=== PATIENT | male | born 1965 | race Hispanic/Latino ===

== ENCOUNTER 2017-09-02 00:45 | Inpatient (IN) | payer BC, MEDICARE ==
[2017-09-02] MEDS ORDERED: Octreotide Acetate 50 MCG/ML AMP ONE ×2 (01:01→01:11)
[2017-09-02] MEDS ORDERED: Pantoprazole 40 MG VIAL ONE ×2 (01:01→01:12)
[2017-09-02] MEDS ORDERED: Ondansetron ODT 4 MG TAB ONE (01:10)
[2017-09-02] MEDS ORDERED: Octreotide Acetate 1,250 MCG in Sodium Chloride 0.9% 250 ML 250 ML IVPB SCH (01:15)
[2017-09-02 01:18] LABS: INR-International Normal Ratio 1.7; PTT 32.3 SEC (22.9-36.1); Prothrombin Time 20.4 SEC (12.0-14.7)
[2017-09-02 01:32] LABS: Hemoglobin 5.8 g/dL (14.0-18.0)
[2017-09-02] MEDS ORDERED: EPINEPHrine 1 MG/10 ML Abboject SYRINGE ONE (01:32)
[2017-09-02 01:57] LABS: ALT (SGPT) 29 U/L (8-55); AST (SGOT) 45 U/L (5-34); Alkaline Phosphatase 73 U/L (40-150); Anion Gap 12 mmol/L (10-20); BUN (Urea Nitrogen) 32 mg/dL (8.4-25.7); Bilirubin, Total 0.9 mg/dL (0.2-1.2); Calc. Creatinine Clearance 0 mL/min (70-130); Calcium 7.8 mg/dL (7.8-10.44); Carbon Dioxide 21 mmol/L (22-29); Chloride 108 mmol/L (98-107); Estimated GFR-MDRD 70; Globulin 2.7 g/dL (2.4-3.5); Glucose 123 mg/dL (70-105); Potassium 4.1 mmol/L (3.5-5.1); Protein, Total 4.7 g/dL (6.0-8.3); Sodium 137 mmol/L (136-145)
[2017-09-02] MEDS ORDERED: Ondansetron HCl/PF 4 MG/2 ML Vial IVP PRN ×2 (02:26→03:08)
[2017-09-02 02:27] LABS: #Basophils 0.1 thou/uL (0.0-0.2); #Eosinphils 0.3 thou/uL (0.0-0.7); #Lymphocytes 2.5 thou/uL (1.20-3.40); #Monocytes 1.3 thou/uL (0.11-0.59); #Neutrophils 6.9 thou/uL (1.40-6.50); %Basophils 1.1 % (0.0-1.0); %Eosinophils 2.6 % (0.0-10.0); %Lymphocytes 22.6 % (21.0-51.0); %Monocytes 11.8 % (0.0-10.0); %Neutrophils 61.9 % (42.0-75.0); Anisocytosis SLIGHT = 6-15 cells (100X) (0-5/hpf); MDiff Complete? YES; Mean Corpuscular Hemoglobin 24.4 pg (27.0-31.0); Mean Corpuscular Volume 81.3 fl (80.0-94.0); Mean Platelet Volume 9.7 fL (7.4-10.4); PLT Morphology Comment Appears Adequate; Platelet Count 204 thou/uL (130-400); Polychromasia SLIGHT = 2-3 cells (100X) (0-2/hpf); RBC Distribution Width 19.9 % (11.5-14.5); Red Blood Cell (RBC) Count 2.39 mill/uL (4.70-6.10); Target Cells SLIGHT = 2-5 cells (100X) (0-1/hpf); White Blood Cell (WBC) Count 11.2 thou/uL (4.8-10.8)
--- NOTE | 2017-09-02 03:28 | CON ---
DATE OF CONSULTATION: 09/02/2017 HISTORY OF PRESENT ILLNESS: The patient is a 52-year-old male with a history of esophageal varices and alcoholic cirrhosis, presented with vomiting blood. In the emergency room, according to nursing personality, he threw up approximately a liter of blood. He has done this in the past and fr om reports from family members, he has had previous upper endoscopy. They did not band him in a prev ious endoscopy and it is unclear why he did not get banded. PAST MEDICAL HISTORY: History of hepatocellular carcinoma treated with ablation therapy. MEDICATIONS: Protonix 40 mg p.o. daily; however, the bottle is empty. ALLERGIES: No known allergies. SOCIAL HISTORY: He says he was an alcoholic in the past, but stopped drinking and then started drink ing today. He is also a former smoker and started smoking again today. FAMILY HISTORY: Negative for GI or liver disease. REVIEW OF SYSTEMS: Ten systems were reviewed and were negative except for above. PHYSICAL EXAMINATION: GENERAL: Shows a well-developed, well-nourished male in no acute distress. VITAL SIGNS: Pulse is 110, blood pressure is 100/60, respiratory rate 16, temperature is 97.7. HEENT: Unremarkable. NECK: Supple. CHEST: Clear. CARDIOVASCULAR: Regular rate and rhythm without murmurs or gallops. ABDOMEN: Soft and nontender without organomegaly or masses. Bowel sounds present and normoactive. LABORATORY DATA: CBC is pending. PT is 20.4 with an INR of 1.7. ASSESSMENT: 1. Upper gastrointestinal bleed - assumed varices. It is unclear why the patient was not banded in the past. 2. Cirrhosis. 3. History of hepatocellular carcinoma. RECOMMENDATIONS: 1. Emergent EGD. 2. Octreotide. 3. Serial H&H. 4. PPI.
--- NOTE | 2017-09-02 03:36 | OP ---
DATE OF PROCEDURE: 09/02/2017 PREOPERATIVE DIAGNOSIS: Upper gastrointestinal bleed. DESCRIPTION OF PROCEDURE: After informed consent was obtained, the patient was placed in left latera l decubitus position. Anesthesia administered per the Anesthesia Department. Forward-viewing endosc ope was inserted into the esophagus under direct visualization with ease and passed to the second por tion of the duodenum with ease. Second portion of the duodenum and duodenal bulb were normal. Pylor us was normal. The antrum was normal. There was a large amount of retained food and blood material in the body and fundus of the stomach, so full visualization could not be achieved. No active bleedi ng was appreciated. Retroflexion in the stomach was normal. No gastric varices were achieved, altho ugh full visualization could not be achieved. Grade 2-3 esophageal varices were noted without stigma ta of hemorrhage. The scope was removed. Ligator device was attached and 4 bands were placed on the distal esophagus over the varices. ASSESSMENT: 1. Grade 2-3 esophageal varices without stigmata of recent hemorrhage - status post ligation. 2. Large amount of retained gastric contents. RECOMMENDATIONS: 1. Continue octreotide. 2. Continue PPI. 3. Begin nadolol. 4. Clear liquids. 5. Serial H&H.
[2017-09-02 03:52] VITALS: BMI 24.0
[2017-09-02] MEDS: cefTRIAXone\\ROCEPHIN 1 GM in Sodium Chloride 0.9% 100 ML IVPB SCH (04:26)
[2017-09-02] MEDS: Sodium Chloride 0.9% 1,000 ML IV SCH ×2 (04:27→10:43)
[2017-09-02 06:54] LABS: Anion Gap 13 mmol/L (10-20); BUN (Urea Nitrogen) 23 mg/dL (8.4-25.7); Calc. Creatinine Clearance 114 mL/min (70-130); Calcium 7.3 mg/dL (7.8-10.44); Carbon Dioxide 17 mmol/L (22-29); Chloride 112 mmol/L (98-107); Estimated GFR-MDRD Greater than 90; Glucose 92 mg/dL (70-105); Potassium 5.6 mmol/L (3.5-5.1); Sodium 136 mmol/L (136-145)
--- NOTE | 2017-09-02 07:39 | RAD ---
CHEST 1 VIEW: HISTORY: Hematemesis. COMPARISON: Chest radiograph 2009. FINDINGS: Lungs are slightly hypoinflated. No focal airspace consolidation, pneumothorax, or effusion. Cardia c silhouette and mediastinal contour is within normal limits. IMPRESSION: No acute intrathoracic abnormality. POS: [facility]
[2017-09-02] MEDS: Pantoprazole 80 MG in Sodium Chloride 0.9% 100 ML IVP SCH ×2 (10:35→20:39)
[2017-09-02 13:19] LABS: Hemoglobin 7.5 g/dL (14.0-18.0)
[2017-09-02] MEDS ORDERED: Succinylcholine Chloride 20 MG/ML 10 ml SYRINGE FS ONE (13:33)
--- NOTE | 2017-09-02 14:15 | CON ---
DATE OF CONSULTATION: 09/02/2017 SERVICE: Pulmonary Medicine. REASON FOR CONSULTATION: ICU patient. HISTORY OF PRESENT ILLNESS: The patient is a 52-year-old male with past medical history significant for hepatocellular carcinoma, and cirrhosis. He was in his usual state of health until he started vomiting large amounts of blood. He underwent an emergent EGD yesterday because of acute blood loss anemia and hemorrhagic shock. Active bleeding lesion was identified. Four bands were placed. The patient is being observed in the ICU at this point. There is no evidence of further bleeding currently. Hemodynamics are stabilizing at touch. The patient denies having fevers, chills, nausea or vomiting that precipitated this event. PAST MEDICAL HISTORY: 1. Cirrhosis. 2. Hepatocellular carcinoma. 3. Alcohol abuse. 4. Hepatitis B, history of. PAST SURGICAL HISTORY: 1. Cholecystectomy. 2. EGDs, multiple. 3. Left shoulder surgery. FAMILY HISTORY: Noncontributory. SOCIAL HISTORY: The patient is and has 5 children. He has previous history of daily alcohol use. He was sober for some period of time, but started drinking again recently. He denies any alcohol or illicit drugs. He has no exposure to chemicals, dust asbestos, or tuberculosis. ALLERGIES: No known drug allergies. MEDICATIONS: List of his inpatient medications were reviewed. No specific updates were made at this time. REVIEW OF SYSTEMS: General, head, ears, eyes, nose, throat, cardiovascular, respiratory, GI, , musculoskeletal, neurologic, and skin is negative except as mentioned in the HPI. PHYSICAL EXAMINATION: VITAL SIGNS: Afebrile, pulse 96, blood pressure 100/59, respirations 26, and saturation 92% on room air. GENERAL: The patient is awake and alert, in no apparent distress. LUNGS: Decent air entry. There is rhonchus breath sounds that are transmitted from the upper airway. No prolonged expiratory phase or wheezing is present. HEART: Normal rate, regular. ABDOMEN: Soft, nontender, nondistended. Bowel sounds are positive. MUSCULOSKELETAL: No cyanosis or clubbing. There is no pitting in the bilateral lower extremities. NEUROLOGIC: Grossly nonfocal. LABORATORY DATA: Hemoglobin 14.4 down trended to 5.8. Hematocrit then has improved from 19 up to 26. Potassium 5.6, chloride 112, bicarbonate 17. Anion gap is low at 13, creatinine 0.8. INR 1.7. Two units of blood has been transfused to date. IMAGING: Chest x-ray demonstrates no acute cardiopulmonary abnormality. ASSESSMENT: 1. Acute blood loss anemia. 2. Hemorrhagic shock, resolved. 3. Cirrhosis. 4. Variceal bleed. 5. Hepatocellular carcinoma. PLAN: We will trend our hemoglobins through time. If they remain stable, he can be transitioned to the floor in the morning. Pulmonary and Critical Care will continue to follow while he remains in this location. Should he developed any hemodynamic instability, he has got multiple units of blood are currently prepared for him if necessary. 70 minutes have been devoted to this patient in various activities. I personally reviewed all imaging studies and laboratory data noted within this document. For fifty percent of this time, I was interacting with the patient at the bedside or coordinating care with the care team. For the remainder of the time I was immediately available to the patient in the hospital unit. BILL
[2017-09-02] MEDS: Morphine 4 MG/ML VIAL SLOW IVP PRN (16:29)
[2017-09-02 17:15] LABS: Hemoglobin 7.5 g/dL (14.0-18.0)
[2017-09-02 21:10] LABS: Hemoglobin 7.6 g/dL (14.0-18.0)
[2017-09-03 01:12] LABS: Hemoglobin 7.2 g/dL (14.0-18.0)
[2017-09-03] MEDS: cefTRIAXone\\ROCEPHIN 1 GM in Sodium Chloride 0.9% 100 ML IVPB SCH (04:54)
[2017-09-03] MEDS: Morphine 4 MG/ML VIAL SLOW IVP PRN (04:56)
[2017-09-03 05:24] LABS: Anion Gap 3 mmol/L (10-20); BUN (Urea Nitrogen) 22 mg/dL (8.4-25.7); Calc. Creatinine Clearance 116 mL/min (70-130); Calcium 7.5 mg/dL (7.8-10.44); Carbon Dioxide 25 mmol/L (22-29); Chloride 114 mmol/L (98-107); Estimated GFR-MDRD Greater than 90; Glucose 86 mg/dL (70-105); Sodium 138 mmol/L (136-145)
[2017-09-03] MEDS: Pantoprazole 80 MG in Sodium Chloride 0.9% 100 ML IVP SCH ×2 (08:53→17:55)
[2017-09-03] MEDS ORDERED: Albumin 5% 500 ML ONE (09:44)
[2017-09-03] MEDS ORDERED: EPINEPHrine 1 MG/ML AMP ONE (09:44)
[2017-09-03] MEDS ORDERED: Fentanyl 100 MCG/2 ML VIAL ONE (09:48)
[2017-09-03] MEDS ORDERED: Ethanolamine Oleate 5% 2 ml Ampule ONE ×3 (09:57→10:00)
--- NOTE | 2017-09-03 10:02 | PRG ---
DATE OF SERVICE: 09/03/2017 SERVICE: Pulmonary Medicine. INTERVAL HISTORY: The patient was doing well last night. He actually got transferred to the floor b ecause he demonstrated stable hemoglobins. That being said, this morning at 8:00 he started having h ematemesis once again and started passing large blood through per rectum. As such, he is transitione d back to the ICU. The GI has been consulted and is currently at bedside. He is in the process of g etting 2 units of blood. Otherwise, there were no significant events overnight. PHYSICAL EXAMINATION: VITAL SIGNS: Afebrile, pulse 90, blood pressure 112/54, respirations 26, saturation 97% on room air. GENERAL: The patient is awake, alert, no apparent distress. LUNGS: Excellent air entry. There is no prolonged expiratory phase or wheezing present. HEART: Normal rate, regular. ABDOMEN: Soft, nontender, nondistended. Bowel sounds are positive. MUSCULOSKELETAL: No cyanosis or clubbing. There is no pitting in the bilateral lower extremities. NEUROLOGIC: Grossly nonfocal. LABORATORY DATA: Hemoglobins have been 7.5, 7.6, and now 7.2. INR 1.7. Basic metabolic profile is essentially unremarkable otherwise. ASSESSMENT: 1. Acute blood loss anemia. 2. Cirrhosis. 3. Variceal bleed. 4. Hepatocellular carcinoma. DISCUSSION AND PLAN: The patient is currently hemodynamically stable. That being said, he has lost a lot of blood and her starting point was a hemoglobin of 7.6. As such, we will empirically give him 2 units of blood. GI is currently at bedside and was in the process of getting him down to the endo scopy suite. Pulmonary Critical Care will continue to follow along.
[2017-09-03 10:15] VITALS: BP 105/62
[2017-09-03] MEDS ORDERED: Promethazine HCl 25 MG/ML VIAL SLOW IVP PRN (10:57)
[2017-09-03] MEDS ORDERED: Ondansetron HCl/PF 4 MG/2 ML Vial IVP PRN (10:57)
[2017-09-03] MEDS ORDERED: Promethazine HCl 25 MG/ML VIAL IM PRN (10:57)
--- NOTE | 2017-09-03 13:01 | HP ---
CHIEF COMPLAINT: Vomiting blood. HISTORY OF PRESENT ILLNESS: This is a 52-year-old male with a known history of hepatitis and cirrhos is who presents with a chief complaint of vomiting blood. The patient has known prior history of daisy ices for which he underwent surgery in June of this year. The patient had sudden onset of having bl oody stools that started yesterday. [facility] He then additionally on top of his bloody stools, had a bloody emesis. At the time of my evaluation, the patient is currently status post emergent EGD and is being seen in the recovery room. I was called by the emergency department while the patient was already in the OR. At the time of my evaluation, the patient denies any dizziness, denies any abdominal pain, lighthea dedness. He has had no further episodes of vomiting blood or bloody diarrhea since his procedure. REVIEW OF SYSTEMS: As per HPI, it is otherwise negative. The patient denies any recent illness. De nies any recent fevers or chills associated with symptoms noted above. PAST MEDICAL HISTORY: As per HPI, significant for hepatitis C, cirrhosis, status post cholecystectom y. PAST SURGICAL HISTORY: 1. Status post hernia repair. 2. Question of hepatic malignancy is seen in his chart. HOME MEDICATIONS: Please see the EMR for full details. Of note, the patient currently has listed La six 40 mg p.o. daily, pantoprazole 40 mg p.o. b.i.d. and Buspirone 15 mg p.o. p.r.n. The patient den ies any recent [id number]-[id number] herbal supplements or medication changes in the last month. ALLERGIES: No known drug allergies. FAMILY HISTORY: Negative for any known family history of hepatic disease or gastrointestinal disease or hepatic malignancy. SOCIAL HISTORY: Patient is . Denies any tobacco. Does have intermittent alcohol use, which he describes as 6 beers a day. Denies any active illicit drugs use. The patient endorses wishing be ing full code at this point in time. PHYSICAL EXAMINATION: GENERAL: The patient is awake, alert, appropriate, appears to be somewhat sleepy, but is easily arou sable to provide a history. As noted above, the patient is seen post-procedurally. HEENT: Normocephalic, atraumatic, equal ocular motions are intact, slightly dry mucous membranes. CARDIOVASCULAR: S1, S2. No murmurs, rubs or gallops. Pulses 2+ bilateral upper extremities, no pit ting pedal edema. RESPIRATORY: Reasonable air movement. No conversational dyspnea. Clear to auscultation without whe ezes, rales or rhonchi. ABDOMEN: Positive bowel sounds, soft, nondistended, nontender to palpation. MUSCULOSKELETAL: Able to move all 4 extremities equally and coordinate using a urinal by Self. LABORATORY DATA AND IMAGING: WBC 11.2, hemoglobin 5.8, hematocrit 19.4, platelets 19.9, PT 20.4, INR 1.7, sodium 137, potassium 4.1, chloride 108, bicarbonate 21, BUN 32, creatinine 1.1, glucose 123, c alcium 7.8, total bilirubin 0.9, AST 45, ALT 29, alkaline phosphatase 73, total protein 4.7, albumin 2.0. ASSESSMENT AND PLAN: 1. This is a 52-year-old male who presents with hematemesis in the setting of cirrhosis and hepatiti s C. 2. Gastrointestinal bleeding. I appreciate Gastroenterology consultation. Patient has undergone EG D with variceal banding. We will continue with Protonix, closely monitor with serial H&H. Patient h as already been transfused in the emergency department as well. The patient currently is on the octr eotide drip post-procedurally. Also add ceftriaxone for empiric antibiotic coverage. IV fluid as we ll. The patient currently appears to be hemodynamically stable. 3. Cirrhosis. Please see discussion above. Continue to closely monitor. 4. Hepatitis C. Please see above. Currently, appears to be stable. 5. Acute blood loss anemia. Transfusion parameters are to maintain hemoglobin of 7 or greater. INR 1.7, likely secondary to dysfunctional synthetic function of the liver from cirrhosis. DIET: As per GI post-procedurally. ACTIVITY: As tolerated. DEEP VENOUS THROMBOSIS PROPHYLAXIS: Sequential. Admit the patient to [facility] inpatient. Thank you for asking me to care for the patient. Questions or concerns, contact me at [facility].
--- NOTE | 2017-09-03 13:22 | PDOC.FM ---
- Subjective Subjective: Received call from [facility] physician, Dr. Dean, at approximately 11:00 AM on regarding transfer of care for patient. Patient's PCP is Dr. Hernandez. Patient was admitted under [facility] service at approximately 01:00 on 09/02/2017. Patient was admitted for upper GI bleed. History obtained from patient's who reports that at approximately 00:20 on Saturday September 02, 2017, patient got up to use the restroom and fell to the ground. He was too weak to get up, even with the assistance of his . He then started to throw up copious amounts of bloody emesis. She rushed him to the ER. They wanted to go to [facility] which is where patient's Oncologist works, but due to patient's condition EMS took patient to nearest hospital. Upon arrival to ED, patient was found to have a hemoglobin of 5.8 which was down from 14 on previous admission. He was transfused 2 units of pRBC's and Hg went up to 7.5. Patient was taken back for EGD and found to have several varices where were ligated by Dr. Fuller. He was started on protonix, octreotide, and nadolol. Patient was stable yesterday morning and transferred to the floor. At approximately 07:28 a [facility] was called per documentation. Patient was reportedly throwing up large amounts of bright red blood. Dr. Fuller was contacted and he took pt back for urgent EGD. Uncertain of findings at this time. Dr. Fuller did report that patient needed transfer for TIPS procedure due to recurrent bleeding. [facility] service was notified of need for transfer and then the residents were called to take over care since it is a patient of Dr. Hernandez. Upon taking over care for patient, a thorough H&P was obtained from patient's as patient was still sedated and unable to answer questions after procedure. Of note, patient was diagnosed with HCC in 11/2014. He had radioablation therapy in 06/2015 and told he was cancer free in 12/2015. He has a history of cirrhosis secondary to alcohol use and Hep C. He was supposed to be taking protonix daily, but it is unclear whether he has been doing so. He had reportedly quit drinking and smoking when he was diagnosed with HCC. Patient had not had any problems until June of this year. He had bloody emesis and rectal bleeding which prompted visit to ED at [facility] at that time. He was noted to have variceal bleeds, but no banding or ligation was performed. He was sent home on protonix. He also has noted diffuse edema since that time and had a paracentesis performed in July. Dr. Hernandez started him on lasix PRN for swelling. reports that patient has been more depressed recently. She was not aware that he started drinking again, but records indicate that patient reported to nurses upon arrival to ED that he had been drinking that day. Patient has also started to smoke 1-2 cig for the last few weeks. PMH: HCC s/p radioablation therapy (Dr. Perez in [place]), Cirrhosis, EtOH abuse, Hep C Meds: Protonix 40 mg qd Surgeries: Cholecystectomy, Left shoulder surgery, Hernia repair Social History: As stated above. Lives at home with . Has 5 children. Allergies: NKDA - Objective MAR Reviewed: Yes Vital Signs & Weight: Vital Signs (12 hours) Temp Pulse Pulse Pulse Pulse Pulse Resp 09/03/17 12:00 97.9 F 09/03/17 10:13 98.7 F 87 21 H 09/03/17 09:00 98.5 F 89 22 H 09/03/17 08:45 98.6 F 92 19 09/03/17 07:56 98.6 F 105 H 22 H 09/03/17 07:50 09/03/17 07:28 118 H 110 H 107 H 09/03/17 04:15 98.8 F 86 16 Resp Resp Resp BP BP BP BP 09/03/17 12:00 09/03/17 10:13 105/62 09/03/17 09:00 112/54 L 09/03/17 08:45 102/36 L 09/03/17 07:56 09/03/17 07:50 09/03/17 07:28 24 H 24 H 20 122/60 142/61 H 85/69 L 09/03/17 04:15 BP Pulse Ox Pulse Ox Pulse Ox Pulse Ox 09/03/17 12:00 09/03/17 10:13 94 L 09/03/17 09:00 93 L 09/03/17 08:45 09/03/17 07:56 98 09/03/17 07:50 100 09/03/17 07:28 95 98 98 05/26/18 04:15 121/65 92 L Weight Weight 73.981 kg Most Recent Monitor Data Heart Rate from ECG 75 NIBP 121/73 NIBP BP-Mean 92 Respiration from ECG 27 SpO2 100 I&O: 09/02/17 09/03/17 09/04/17 06:59 06:59 06:59 Intake Total 252.2 1512.8 400 Output Total 375 1000 100 Balance -122.8 512.8 300 Result Diagrams: 09/03/17 00:59 09/03/17 00:57 EKG Reviewed by me: No Radiology Reviewed by me: No <Carlie Bhatt - Last Filed: 09/03/17 17:20> - Objective Vital Signs & Weight: Vital Signs (12 hours) Temp Pulse Pulse Pulse Pulse Pulse Resp 09/03/17 16:00 98.4 F 09/03/17 12:00 97.9 F 09/03/17 10:13 98.7 F 87 21 H 09/03/17 09:00 98.5 F 89 22 H 09/03/17 08:45 98.6 F 92 19 09/03/17 07:56 98.6 F 105 H 22 H 09/03/17 07:50 09/03/17 07:28 118 H 110 H 107 H Resp Resp Resp BP BP BP BP 09/03/17 16:00 09/03/17 12:00 09/03/17 10:13 105/62 09/03/17 09:00 112/54 L 09/03/17 08:45 102/36 L 09/03/17 07:56 09/03/17 07:50 09/03/17 07:28 24 H 24 H 20 122/60 142/61 H 85/69 L Pulse Ox Pulse Ox Pulse Ox Pulse Ox 09/03/17 16:00 09/03/17 12:00 09/03/17 10:13 94 L 09/03/17 09:00 93 L 09/03/17 08:45 09/03/17 07:56 98 09/03/17 07:50 100 09/03/17 07:28 95 98 98 Weight Weight 73.981 kg Most Recent Monitor Data Heart Rate from ECG 69 NIBP 132/71 NIBP BP-Mean 81 Respiration from ECG 15 SpO2 92 I&O: 09/02/17 09/03/17 09/04/17 06:59 06:59 06:59 Intake Total 252.2 1512.8 582 Output Total 375 1000 100 Balance -122.8 512.8 482 Result Diagrams: 09/03/17 00:59 09/03/17 00:57 <Jeovanny Macias - Last Filed: 09/03/17 18:41> Phys Exam - Physical Examination Sedated but cooperative HEENT: moist MMs, oral pharynx no lesions Neck: no JVD, supple Respiratory: no wheezing, clear to auscultation bilateral Cardiovascular: RRR, no significant murmur Gastrointestinal: positive bowel sounds Distended, mild fluid wave Musculoskeletal: no edema, pulses present Neurological: non-focal, moves all 4 limbs Deviation from normal: Moderately sedated but cooperative Skin: no rash, cap refill <2 seconds Deviation from normal: Multiple tattoos <Carlie Bhatt - Last Filed: 09/03/17 17:20> Dx/Plan (1) Upper GI bleed Code(s): K92.2 - GASTROINTESTINAL HEMORRHAGE, UNSPECIFIED Status: Acute (2) Cirrhosis of liver Code(s): K74.60 - UNSPECIFIED CIRRHOSIS OF LIVER Status: Chronic (3) ETOH abuse Code(s): F10.10 - ALCOHOL ABUSE, UNCOMPLICATED Status: Chronic (4) Hepatitis C Code(s): B19.20 - UNSPECIFIED VIRAL HEPATITIS C WITHOUT HEPATIC COMA Status: Chronic (5) History of hepatocellular carcinoma Code(s): Z85.05 - PERSONAL HISTORY OF MALIGNANT NEOPLASM OF LIVER Status: Resolved - Plan Plan: Upper GI bleed 2/2 esophageal varices - GI consulted; appreciate recs - s/p EGD x2 since admission; varices ligated on first EGD - Recurrent bleeding; Dr. Fuller recommends TIPS procedure which requires transfer of patient - Efforts have been made to transfer patient for TIPS procedure; awaiting call for doc to doc - Continue to trend H&H - Patient s/p 3 units of pRBC's - Hg on admission 5.8 --> 7.6 - Continue nadolol, octreotide, and protonix EtOH abuse - Patient reportedly quit drinking when diagnosed with HCC in 2014 - He has been depressed lately and started drinking again recently - [facility] on importance of cessation once medically stable Liver cirrhosis - Likely 2/2 alcohol abuse and Hep C - Ascites present - On lasix PRN for swelling History of HCC - s/p radioablation 06/2015 - "cancer free" since 12/2015 - Procedure done in [place] by Dr. Perez Code status: full DVT ppx: SCDs Dispo: Pt stable. Plan for transfer to facility that does TIPS procedure. Awaiting doc to doc for acceptance. <Carlie Bhatt - Last Filed: 09/03/17 17:20> Attending Addendum - Attending Addendum Date/Time: 09/03/17 1840 I personally evaluated the patient and discussed the management with I agree with the History, Examination, Assessment and Plan documented above with any addition or exceptions noted below. <Jeovanny Macias - Last Filed: 09/03/17 18:41>
[2017-09-03] MEDS ORDERED: PROPOFOL 200 MG/20 ML VIAL ONE (13:58)
[2017-09-03] MEDS ORDERED: PHENYLEPHRINE-NS 100 MCG/ML 10 ML SYRINGE ONE (13:58)
[2017-09-03] MEDS ORDERED: ePHEDrine/0.9% NaCl/PF SYRINGE 50 mg/10 ml ONE (13:58)
[2017-09-03] MEDS ORDERED: Succinylcholine Chloride 20 MG/ML 10 ml SYRINGE FS ONE (13:58)
[2017-09-03] MEDS ORDERED: Lidocaine 1% PF 5 ML VIAL ONE (13:58)
--- NOTE | 2017-09-03 14:16 | PDOC.EVN ---
Event Note - Event Note Event Note: 52 yo male admitted by yesterday with hematemesis patient has received blood and underwent EGD with banding of esophageal varices. Patient with rebleed and is currently receiving blood products and has been recommended for transfer for TIPS . Patient is known patient of Dr Hernandez and was accepted to our service today. Discussed situation with patient's spouse and she relates history of prior history Hepatitic C with cirrhosis and heptocellular carcinoma patient treated at [facility] with selective ablation DR Lauren. Patient recently started reusing alcohol and tobacco. Last H/H 7.2/22.9 Exam alert arousable lung clear at bases heart NSR adbomen distended diffusely tender. Patient on octreotide drip,PPI and nadolol. The transfer center has been notified and attemtping to transfer to higher level of care for TIPS. I have examined this patient and discussed this case and care plan with Giovanni Bahtt and Radha
--- NOTE | 2017-09-03 16:09 | OP ---
PREOPERATIVE DIAGNOSIS: Upper gastrointestinal bleed. DESCRIPTION OF PROCEDURE: After informed consent was obtained, patient placed in the left lateral de cubitus position. Anesthesia was administered per the Anesthesia Department. Forward-viewing endosc ope was inserted into the esophagus under direct visualization with ease and passed to the second por tion of the duodenum with ease. Second portion of the duodenum and duodenal bulb were normal. No bl ood was seen in the upper GI tract. Retroflexion in the stomach showed a large gastric varix with a fibrin clot. Also, there were 4 bands in the esophagus, none was actively bleeding. ASSESSMENT: 1. Gastric varix with a fibrin clot. 2. Four ulcers secondary to previous variceal ligation. RECOMMENDATIONS: 1. Continue octreotide. 2. Transfer for TIPS.
[2017-09-03 16:19] VITALS: TEMP 98.4
--- NOTE | 2017-09-03 16:35 | PDOC.EVN ---
Event Note - Event Note Event Note: 1152 Ashley from [facility] paged. She had touched base with [facility]. The surgeon I had previously spoken to there had suggested 2 hospitalists to their transfer center to accept the admission and Ashley was told both hospitalists had declined accepting the transfer and that the surgeon is still looking for an accepting hospitalists. Ashley will contact us when an accepting doc is available. We will continue to care for the patient in the CCU and attempt to arrange transfer
--- NOTE | 2017-09-03 17:02 | PDOC.EVN ---
Event Note - Event Note Event Note: Late entry: Attended [facility] today AM. Discussed with Dr. Fuller, who recommended transfer to [facility] for TIPS procedure. While going through the chart to facilitate the transfer I found out that pt sees Dr. Hernandez. Discussed with residents, who kindly agreed to accept care of the patient.
[2017-09-03 18:13] LABS: HBSAB Concentration 0.46 mIU/mL; Hep B Core Total Ab Non-Reactive (NonReactive); Hep B Core Total Index 0.13 S/CO (0-0.79); Hep B Surf AB Non-Reactive (NonReactive); Hep B Surf Ag Non-Reactive S/CO (NonReactive)
--- NOTE | 2017-09-03 18:14 | PDOC.EVN ---
Event Note - Event Note Event Note: I was contacted by [facility] at 1803. Dr. Garcia in Critical Care at [facility] was on the line with their transfer center for the doc-to- doc. I reviewed the case with Dr. Garcia and she agreed to accept the admission. Will proceed with transfer
[2017-09-03 19:08] LABS: Hep C IgG Ab Reflex HepC Qnt (NonReactive); Hep C Index 11.53 S/CO (0-0.79)
--- NOTE | 2017-09-05 19:17 | DIS-2 ---
DATE OF ADMISSION: 09/02/2017 DATE OF DISCHARGE: 09/03/2017 ADMITTING ATTENDING: Actually initially the [facility], Rajinder Montana, the residents took over care at approximately 11:00 a.m. on 09/03/2017, Dr. Jeovanny Macias was the attending at the time. DISCHARGE ATTENDING: Dr. Jeovanny Macias. RESIDENT: Dr. Carlie Bhatt. CONSULTATIONS: 1. GI, Dr. Cristian Fuller. 2. Pulmonology, Dr. Donald Molina. PROCEDURES: 1. Chest x-ray: No acute intrathoracic abnormality. 2. Upper endoscopy was performed which showed grade 2-3 esophageal varices without stigmata of recen t hemorrhage, status post ligation. There is also a large amount of retained gastric content. 3. EGD #2 showed gastric varix with fibrin clot in for ulcer secondary to previous variceal ligation . PRIMARY DIAGNOSES: 1. Upper gastrointestinal bleed secondary to esophageal varices. 2. Hepatocellular carcinoma, status post radioablation therapy. 3. Liver cirrhosis. 4. Alcohol abuse. 5. Hepatitis C. DISCHARGE MEDICATIONS: The patient was transferred to [facility] in [place] for a TIPS procedure. Th patient was receiving octreotide acetate 1250 mcg, pantoprazole 80 mg, Zofran 4 mg IVP q.6. hours p .r.n., Rocephin 1 gram q.24 hours, morphine 2 mg IVP q.4 hours p.r.n., promethazine 6.25 mg IVP p.r. n. upon transfer to [facility]. HISTORY OF PRESENT ILLNESS AND HOSPITAL COURSE: This is a patient that was admitted at approximately 0020 on Tuesday09/02/2017 for weakness and upper GI bleed. The patient reportedly got up to use the restroom and fell to the ground per the and they were unable to get him up due to his weakness. Patient then suddenly started to have profuse bloody emesis and bright red blood per rectum. He wa s rushed to the emergency department. The did state that they were trying to go to [facility] which is where the patient's oncologist works, but due to the patient's condition, EMS took the p atient to the nearest hospital. Upon arrival to the emergency department, the patient was found to h ave hemoglobin of 5.8, which was down from 14 on previous admission. He was transfused 2 units of pa cked red blood cells and hemoglobin went up to 7.5. The patient was taken back for EGD and found to have several varices which were ligated by Dr. Fuller, the agricultural commodities grader. He was started on Karina nix, octreotide and nadolol. The patient was stable after the ligation and transferred to the [facility] floor. At approximately 7:30 on the morning of 09/03/2017, patient had a code green. He was repor tedly throwing up large amounts of bright red blood. Dr. Fuller was contacted and took the patient jack k for urgent EGD for further consultation and operative report, second EGD showed fibrin clot and 4 u lcers from previous ligation. Dr. Fuller recommended continuation of octreotide and PPI as well as a t ransfer for TIPS procedure due to recurrent bleeding. [facility] was notified of need for transfe r and then the residents were called to take over care as it is a patient of Dr. Hernandez. At approxim ately 11:00 a.m. on 09/03/2017, care was transferred to the resident service and the residents procee ded with transferring the patient for the recommended procedure. Of note, patient had been abstinent from alcohol since his diagnosis of hepatocellular carcinoma in 2015; however, he did admit to drink ing upon arrival to the emergency department. He has apparently become more depressed recently which has prompted his relapse. Once the patient was transferred to the resident service, he was status post EGD and was sedated. Al l of the above history was obtained from the patient's . Transfer center was contacted and attem pts were made to transfer the patient to [facility] in [place] where the patient's liver doctor, Dr. Tha Al works. The surgeon performing the TIPS procedures called the resident and accepted the patie nt for transfer; however, he said that he cannot accept for admission and needed to discuss with the Internal Medicine Physicians at his facility. Approximately several hours later, the residents were again notified and an accepting physician spoke with Dr. Mcgovern who checked out the patient in [facility]. The patient was then accepted to be admitted to [facility] in [place] where he will be receiving a TIPS procedure. The patient was stable upon discharge from hospital. DISPOSITION: Stable. DISCHARGE INSTRUCTIONS: 1. Transfer to [facility] in [place]. 2. Activity: Bed rest. 3. Diet: Regular. 4. Follow up will be dependent upon recommendations of worth by physicians who are taking over care at [facility].
== END 2017-09-03 20:43 | disposition short-term general hospital (02) | DRG 368 ==
LOC: ERS 00:45 → CCU 02:17 → 2NO 20:44 → CCU 09-03 08:01
PROVIDERS: ADMIT Internal Medicine; ATTEND Internal Medicine
PROC: 06L38CZ Occlusion of Esophageal Vein with Extraluminal Device, Via Natural or Artificial Opening Endoscopic (ICD-10-PCS; principal; 2017-09-02)
PROC: 30233N1 Transfusion of Nonautologous Red Blood Cells into Peripheral Vein, Percutaneous Approach (ICD-10-PCS; 2017-09-02)
PROC: 0DJ08ZZ Inspection of Upper Intestinal Tract, Via Natural or Artificial Opening Endoscopic (ICD-10-PCS; 2017-09-03)
DX: I85.01 Esophageal varices with bleeding (principal); R57.8 Other shock; K22.10 Ulcer of esophagus without bleeding; D62 Acute posthemorrhagic anemia; K31.89 Other diseases of stomach and duodenum; I86.4 Gastric varices; F10.10 Alcohol abuse, uncomplicated; B19.20 Unspecified viral hepatitis C without hepatic coma; F32.9 Major depressive disorder, single episode, unspecified; Z86.19 Personal history of other infectious and parasitic diseases; K70.30 Alcoholic cirrhosis of liver without ascites; F17.210 Nicotine dependence, cigarettes, uncomplicated; Z85.05 Personal history of malignant neoplasm of liver; F12.10 Cannabis abuse, uncomplicated; D64.9 Anemia, unspecified
CPT/HCPCS: 36415; 36416; 36430; 71045; 80048; 80053; 85014; 85018; 85025; 85610; 85730; 86704; 86706; 86803; 86850; 86900; 86901; 87340; 96365; 96375; 96376; C9113; J0171; J0696; J1430; J2001; J2270; J2354; J2704; J3010; J7050; P9016; P9045; Q0162